=== PATIENT | female | born 1990 | race Caucasian/White ===

== ENCOUNTER 2022-08-02 22:12 | Inpatient (IN) | payer BC ==
[~2022-08-02] VITALS: Ht 177.8 cm; Wt 99.8 kg
[2022-08-02] MEDS ORDERED: ONDANSETRON HCL 4MG/2ML INJ IV STA (23:29)
[2022-08-02] MEDS ORDERED: SODIUM CHLORIDE 0.9% 1,000 ML IV ONE (23:30)
[2022-08-02 23:47] LABS: CLARITY URINE CLOUDY (CLEAR); COLOR URINE YELLOW (YELLOW); HEMOGLOBIN. 12.6 g/dL (12.0-16.0); KETONES URINE TRACE (NEGATIVE); LEUKOCYTE ESTERASE URINE 3+ (NEGATIVE); MEAN CORPUSCULAR HEMOGLOBIN 29.9 pg (28.0-32.0); MEAN CORPUSCULAR VOLUME 88.2 fL (81.0-99.0); MEAN PLATELET VOLUME 7.7 fl (7.4-10.4); NITRITE URINE NEGATIVE (NEGATIVE); OCCULT BLOOD URINE 1+ (NEGATIVE); PLATELET 227 x1000/uL (130-400); PROTEIN URINE 1+ (NEGATIVE); RED CELL DISTRIBUTION WIDTH 13.2 % (11.6-14.6); SPECIFIC GRAVITY URINE 1.017 (1.005-1.030)
[2022-08-03 00:16] LABS: CHLORIDE 105 mEq/L (98-107)
[2022-08-03 00:20] LABS: *AMPHETAMINES SCREEN URINE NEGATIVE (NEGATIVE); *BARBITURATES SCREEN URINE NEGATIVE (NEGATIVE); *BENZODIAZEPINES SCREEN URINE NEGATIVE (NEGATIVE); *COCAINE SCREEN URINE NEGATIVE (NEGATIVE); METHADONE URINE SCREEN NEGATIVE (NEGATIVE); OPIATES URINE SCREEN NEGATIVE (NEGATIVE); PHENCYCLIDINE URINE SCREEN NEGATIVE (NEGATIVE)
[2022-08-03 00:25] LABS: CANNABINOID URINE SCREEN PRESUMTIVE POSITIVE (NEGATIVE); ETHANOL BLOOD < 10 mg/dL
[2022-08-03 00:39] LABS: HCG SCREEN NEGATIVE
[2022-08-03 02:45] LABS: PLATELET ESTIMATE NORMAL
[2022-08-03] MEDS ORDERED: CEFTRIAXONE 1GM PREMIX 50 ML IV ONE (04:30)
[2022-08-03] MEDS ORDERED: KETOROLAC 15MG/ML VIAL IV NR (05:15)
[2022-08-03] MEDS ORDERED: CLONIDINE 0.1MG TABLET PO PRN (09:45)
[2022-08-03] MEDS ORDERED: IPRATROPIUM/ALBUTEROL 0.5-3(2.5)MG/3ML NEB HHN PRN (09:45)
[2022-08-03] MEDS ORDERED: ACETAMINOPHEN 325MG TABLET PO PRN (09:45)
[2022-08-03] MEDS ORDERED: GUAIFENESIN 200MG/10ML SUGAR FREE UDC PO PRN (09:45)
[2022-08-03] MEDS ORDERED: DOCUSATE SODIUM 100MG CAPSULE PO PRN (09:45)
[2022-08-03] MEDS: DEXT 5%/0.9% NACL 1,000 ML IV SCH (09:45)
[2022-08-03] MEDS ORDERED: IPRATROPIUM BROMIDE (0.02%) 0.5MG/2.5ML NEB HHN PRN (10:15)
[2022-08-03] MEDS ORDERED: ALBUTEROL (0.083%) 2.5MG/3ML NEB HHN PRN (10:15)
[2022-08-03 11:45] VITALS: BP 101/60
[2022-08-03 12:00] VITALS: BP 109/63
[2022-08-03] MEDS ORDERED: MORPHINE SULFATE 2 MG/ML CPJ (NOT FOR IM USE) IV NR (12:15)
[2022-08-03] MEDS: ONDANSETRON HCL 4MG/2ML INJ IV PRN (12:55)
[2022-08-03] MEDS: ENOXAPARIN 40MG/0.4ML SYR SUBCUT SCH (12:55)
[2022-08-03] MEDS ORDERED: IOHEXOL-300 100 ML BOTTLE ONE (15:17)
[2022-08-03 16:00] VITALS: BP 126/70
[2022-08-03] MEDS ORDERED: LEVE10006 MT (16:09)
[2022-08-03] MEDS ORDERED: VENL150C52 MT (16:09)
[2022-08-03] MEDS ORDERED: LAMO100T65 PO (16:09)
[2022-08-03] MEDS ORDERED: *PATIENT'S OWN MEDICATION STORAGE XX SCH (17:00)
[2022-08-03 20:00] VITALS: BP 114/63
[2022-08-03] MEDS: KETOROLAC 15MG/ML VIAL IV PRN (20:12)
[2022-08-03] MEDS: LEVETIRACETAM 500MG TABLET PO SCH (20:12)
[2022-08-03] MEDS: LAMOTRIGINE 100MG TABLET PO SCH (20:12)
[2022-08-03] MEDS: FAMOTIDINE 20MG TABLET PO SCH (20:13)
[2022-08-03 23:59] VITALS: BP 103/53
[2022-08-04] MEDS: DEXT 5%/0.9% NACL 1,000 ML IV SCH ×3 (01:45→19:10)
[2022-08-04 04:00] VITALS: BP 114/65
[2022-08-04] MEDS: KETOROLAC 15MG/ML VIAL IV PRN ×3 (04:23→19:09)
[2022-08-04] MEDS: CEFTRIAXONE 1GM PREMIX 50 ML IV SCH (04:23)
[2022-08-04 07:02] LABS: BASOPHILS % 0.2 % (0.0-2.0); EOSINOPHILS % 1.1 % (0.0-5.0); HEMATOCRIT. 33.3 % (36.0-48.0); HEMOGLOBIN. 11.7 g/dL (12.0-16.0); MEAN CORPUSCULAR HEMOGLOBIN 30.9 pg (28.0-32.0); MEAN PLATELET VOLUME 8.2 fl (7.4-10.4); MONOCYTES % 11.4 % (2.0-8.0); NEUTROPHILS % 73.3 % (40.0-76.0); PLATELET 201 x1000/uL (130-400); RED BLOOD CELL COUNT 3.79 mill/uL (4.2-5.4)
[2022-08-04 07:18] LABS: CHLORIDE 106 mEq/L (98-107)
[2022-08-04 07:37] LABS: T4 FREE 0.83 ng/dL (0.76-1.46)
[2022-08-04 08:00] VITALS: BP 114/48
[2022-08-04] MEDS: LEVETIRACETAM 500MG TABLET PO SCH ×2 (09:41→22:17)
[2022-08-04] MEDS: FAMOTIDINE 20MG TABLET PO SCH ×2 (09:41→22:18)
[2022-08-04] MEDS: LAMOTRIGINE 100MG TABLET PO SCH ×2 (09:41→22:18)
[2022-08-04] MEDS: VENLAFAXINE HCL 50MG TABLET PO SCH ×2 (09:44→13:28)
[2022-08-04] MEDS: ONDANSETRON HCL 4MG/2ML INJ IV PRN ×2 (11:31→22:26)
[2022-08-04 12:00] VITALS: BP 110/45
[2022-08-04] MEDS ORDERED: TEMAZEPAM 15MG CAPSULE PO PRN (13:15)
[2022-08-04] MEDS: ENOXAPARIN 40MG/0.4ML SYR SUBCUT SCH (13:28)
[2022-08-04] MEDS ORDERED: IPRATROPIUM/ALBUTEROL 0.5-3(2.5)MG/3ML NEB HHN PRN (15:15)
[2022-08-04 16:00] VITALS: BP 104/59
[2022-08-04] MEDS ORDERED: NALOXONE HCL 0.4MG/ML VIAL IV PRN (18:00)
[2022-08-04] MEDS ORDERED: POTASSIUM CHLORIDE 20MEQ TABLET SR PO NR (19:00)
[2022-08-04 20:00] VITALS: BP 111/63
[2022-08-04] MEDS: HYDROCODONE/ACETAMINOPHEN 5/325MG TABLET PO PRN (22:34)
[2022-08-05] VITALS (7 sets, daily range): BP systolic 97–126; BP diastolic 45–69
[2022-08-05] MEDS: DEXT 5%/0.9% NACL 1,000 ML IV SCH ×3 (02:07→17:45)
[2022-08-05] MEDS: CEFTRIAXONE 1GM PREMIX 50 ML IV SCH (04:15)
[2022-08-05] MEDS: KETOROLAC 15MG/ML VIAL IV PRN (06:49)
[2022-08-05 07:06] LABS: BASOPHILS % 0.5 % (0.0-2.0); EOSINOPHILS % 4.8 % (0.0-5.0); HEMATOCRIT. 31.6 % (36.0-48.0); LYMPHOCYTES % 28.4 % (20.0-50.0); MEAN CORPUSCULAR VOLUME 88.7 fL (81.0-99.0); MEAN PLATELET VOLUME 8.5 fl (7.4-10.4); MONOCYTES % 11.4 % (2.0-8.0); NEUTROPHILS % 54.9 % (40.0-76.0); PLATELET 201 x1000/uL (130-400); RED BLOOD CELL COUNT 3.56 mill/uL (4.2-5.4); RED CELL DISTRIBUTION WIDTH 12.7 % (11.6-14.6)
[2022-08-05 07:34] LABS: CHLORIDE 113 mEq/L (98-107)
[2022-08-05] MEDS ORDERED: VENLAFAXINE HCL 37.5MG TABLET PO SCH (09:00)
[2022-08-05] MEDS: ENOXAPARIN 30MG/0.3ML SYR SUBCUT SCH ×2 (10:11→20:40)
[2022-08-05] MEDS: FAMOTIDINE 20MG TABLET PO SCH ×2 (10:11→20:40)
[2022-08-05] MEDS: LEVETIRACETAM 500MG TABLET PO SCH ×2 (10:12→20:40)
[2022-08-05] MEDS: LAMOTRIGINE 100MG TABLET PO SCH ×2 (10:12→20:40)
[2022-08-05] MEDS ORDERED: ONDA4TAB11 PO (12:11)
[2022-08-05] MEDS ORDERED: TOPUD PO (12:11)
[2022-08-05] MEDS ORDERED: VENL-179 PO (12:11)
[2022-08-05] MEDS ORDERED: NAPR-681 MT (12:11)
[2022-08-05] MEDS: HYDROCODONE/ACETAMINOPHEN 5/325MG TABLET PO PRN (20:41)
== END 2022-08-05 22:00 | disposition home or self-care (01) | DRG 690 ==
LOC: ER 22:22 → EDBEDREQ 08-03 04:36 → 6EST 08-03 05:59 → EDBEDREQ 08-03 06:02 → EDBEDREQTM 08-03 06:02 → ENRESERV 08-03 08:29
PROVIDERS: ADMIT Internal Medicine; ATTEND Internal Medicine
DX: N12 Tubulo-interstitial nephritis, not specified as acute or chronic (principal); F31.81 Bipolar II disorder; G40.909 Epilepsy, unspecified, not intractable, without status epilepticus; F41.9 Anxiety disorder, unspecified; R16.0 Hepatomegaly, not elsewhere classified
CPT/HCPCS: 36415; 74178; 76700; 80053; 80305; 80320; 81003; 83605; 84439; 84443; 84703; 85025; 93970; 97161; 97166; 99285; C1893; J0696; J1650; J1885; J2270; J2405; J7030; J7042; Q9967; G0480